=== PATIENT | female | born 1975 | race Caucasian/White ===

== ENCOUNTER 2017-04-06 23:47 | Emergency (ER) | payer OTHER ==
[~2017-04-06] VITALS: Ht 167.6 cm; Wt 76.4 kg
[~2017-04-06 23:47] MED LIST: PNV1TABL9 PO
[2017-04-07 00:15] VITALS: BP 112/68; PULSE 81; RESP 16; O2SAT 100
--- NOTE | 2017-04-07 00:23 | ED.REPORT ---
HPI-Extremity Problem Lower Date of Service Apr 07, 2017 ED Provider: Hank Goncalves DO Patient is a 41 year old female who presents to the ED due to a fall. The patient complains of jaw pain and a wound to her left thigh. She reports that she was walking on her unfinished deck, fell and hit her face. Patient denies losing consciousness, vomiting, or pain when she bites down. The patient states that there was no hole in her pants and she does not think that she was puncture by any wood. Nursing Notes Stated Complaint: L LEG WOUND Chief Complaint: Extremity Trauma Nursing Notes Reviewed: Yes Allergies: Coded Allergies: No Known Allergies (Unverified Allergy, 10/15/12) Scheduled Pnv Comb.no1/Iron,Carb/Kieran/Fa-Expunged Drug, ( Mulitvitamin Ultra- Expunged Drug, Do) 1 Tab Tablet 1 TAB PO DAILY General Time Seen by MD: 00:22 Chief Complaint Thigh injury left Hx Obtained From: Patient Arrived By: Walk-in Onset Occurred: 5 - 8 hours ago Symptom Duration: Since onset Caused by: Fall from height... (< 3 feet) Location: : Thigh left Severity: Current: Moderate Recent Healthcare: No recent doctor visit, No recent hospitalization Similar Sx Previous: No Past Medical History Past Medical History none reported Smoking History Unknown if Ever Smoker Social History Other Social History: Good social support, Ambulatory Status Independent Review of Systems Constitutional: Denies: Chills, Fever Musculoskeletal: Reports: Extremity pain (left thigh) Neurologic: Denies: Change LOC, Problem walking Complete sys rev & neg: except as marked. Ears / Nose / Throat: Reports: Mouth pain Respiratory: Denies: Non-productive cough, Shortness of breath, Wheezing Physical Exam Initial Vital Signs Vital Signs (First) Date Time Temp Pulse Resp B/P Pulse Ox O2 Delivery O2 Flow Rate FiO2 04/07/17 00:15 36.7 81 16 112/68 100 Room Air Initial VS: Reviewed General/Constitutional: Well-developed, Well-nourished Head / Eyes: Atraumatic, Normocephalic, PERRL ENT: Mucous membranes moist, Conjunctiva normal, No scleral icterus Neck: Supple, Non-tender Respiratory: Breath sounds normal Cardiovascular: Regular rate & rhythm Abdomen / GI: Soft, Non-tender Upper Extremities: Vascular intact, Neuro intact, No swelling Lower Extremity / Pelvis / MS: Atraumatic, Inspection NL LOWER EXTREMITIES: 3cm x 2cm abrasion to the left lateral thigh Ankle / Foot: Atraumatic, Full range of motion General/Constitutional: Awake, Alert, No acute distress Respiratory / Chest: Atraumatic, No respiratory distress Skin: Atraumatic, Color NL, No rash, Warm, Dry Neurologic: Oriented X3, Speech NL, No motor deficits, No sensory deficits Additional Physical Exam: There is soft tissue swelling and tenderness over the angle of her left mandible. No gross deformity. There are no signs of intraoral lacerations or bleeding. I can deeply palpate her mandible intraorally and this did not seem to cause too much pain. Her jaw tract normally. Head / Eyes: Atraumatic, Normocephalic, PERRL, EOMI no oral lesions no step offs lateral left jaw tenderness Upper Extremity / MS: Atraumatic, Full range of motion Psychiatric: Affect NL, Mood NL Interpretation & Diagnostics X-Ray Interpretation Xray Interpretation: lucuency in left mandible Study Performed: mandible Interpretation / Wet Read by: Wet read ED physician Procedures Laceration Management Time: 02:15 Procedure Performed by: ED physician Consent / Setup / Site Prep: Consent from patient, Time-out performed, Hand hygiene observed Location of Wound: left lateral upper thigh Wound Length: 3 cm Local Anesthesia: Lidocaine w epi 1% Wound Preparation: Betadine Debridement: Yes Irrigation: Copious Foreign Body Explore / Removal: Explored for foreign body Repair Skin: Nylon # Sutures - Skin: 4 Suture Technique: Simple (3 ), Mattress (1 horizontal ) Post-Procedure / Complications: Antibiotic oint applied, Dressing applied, No complications, Condition improved, Tolerated procedure well, Patient stable Re-Eval/Medical Decision Med Decision/Clinical Course Patient denies losing consciousness, severe headache or vomiting making her low risk for head injury. Mandible Xray showed lucuency in her left mandible, recommended CT but patient wants to hold off until tomorrow to see how she feels. The wound was cleaned and closed well. I will place her on prophylactic antibiotics. If she is having any ongoing jaw pain she will come back for a CAT scan. Otherwise the opiates and antibiotics and wound check in 48 hours. Routine opiate warnings were given. Re-Evaluation/Progress : Time of Eval: 02:15 Re-Evaluation/Progress Note: Discussed plan for laceration management and discharge. The patient understands and agrees to the plan. All questions were addressed. Counseled Regarding: Diagnosis, Lab results, Need for follow-up, When/why to return to ED Discharge & Departure Impression: Primary Impression: Fall Encounter type: initial encounter Qualified Code: W19.XXXA - Unspecified fall, initial encounter Additional Impressions: Leg laceration Encounter type: initial encounter Laterality: left Qualified Code: S81.812A - Laceration without foreign body, left lower leg, initial encounter Jaw pain Disposition: Home Discharge Condition All VS Reviewed: Yes Condition: Stable Patient Instructions: Suture Care (ED) Additional Instructions: If the radiologist report says that you have a mandibular fracture, I will call you tomorrow. You can try icing your jaw to help with the pain. You can also take 1-2 [place] every 6 hours for pain. Do not drink alcohol or drive. Do not combine with Acetaminophen. Keep the wound clean and dry. Take Augmentin 2x a day for 7 days. You should have a wound check in 48 hours. You can come back to the emergency department for this or follow up with your primary care physician. The sutures should be removed in 7-10 days. You can also come back to the ED or go to your primary care physician for this as well. Return to the emergency department if you develop any concerning symptoms including signs of infection; redness, swelling, increasing pain or pus drainage. Referrals: Deb Sosa MD (PCP) Scribe Attestation Portions of this note were transcribed by Emily Jeronimo. I, Dr. Goncalves personally performed the history, physical exam and medical decision-making; I reviewed and confirmed the accuracy of the information in the transcribed note. Signed by: Emily Fonseca, 04/07/17 and 0130 copies to: Deb Sosa MD, Todd P DO Apr 07, 2017 00:23 Emely Jeronimo Apr 07, 2017 01:11
[2017-04-07] MEDS ORDERED: Lidocaine 1%-Epi 1:100,000 50 mL Inj NERVEBLOCK ONE (01:10)
[2017-04-07] MEDS ORDERED: HYDROcodone-APAP 5-325 mg Tablet PO ONE (01:10)
[2017-04-07] MEDS ORDERED: Lidocaine 1%/Epi 1:100,000 30 mL MDV ONE (01:19)
[2017-04-07] MEDS ORDERED: _HYDROcodone/APAP 5-325 mg Tablet PO PRN (02:25)
--- NOTE | 2017-04-07 08:16 | DRSVH ---
PROCEDURE: X-RAY MANDIBLE COMPLETE, MINIMUM FOUR VIEWS ([id number]) INDICATIONS: mandibular trauma TECHNIQUE: 4 views of the mandible were acquired. COMPARISON: None. FINDINGS: Bones: No displaced fracture or dislocation of the mandible is evident. The temporal mandibular join ts are not well-seen on this exam. No suspicious osseous lesions are evident. The remainder of the facial bones are grossly unremarkable. Soft tissues: Visualized sinuses appear clear. No suspicious soft tissue densities. IMPRESSION: No displaced mandibular fracture. If there is clinical concern for a subtle fracture, pl ease consider CT of the facial bones for further evaluation. Dictated by: Max Askew M.D. on 04/07/2017 at 8:13 Approved by: Max Askew M.D. on 04/07/2017 at 8:14
== END 2017-04-07 02:50 | disposition home or self-care (01) ==
LOC: SED 23:47
DX: S71.112A Laceration without foreign body, left thigh, initial encounter (principal); S70.312A Abrasion, left thigh, initial encounter; W17.89XA Other fall from one level to another, initial encounter; Y93.01 Activity, walking, marching and hiking; Y92.009 Unspecified place in unspecified non-institutional (private) residence as the place of occurrence of the external cause; Y99.8 Other external cause status; R68.84 Jaw pain